=== PATIENT | female | born 1960 | race Caucasian/White ===

== ENCOUNTER → 2024-11-22 | Outpatient (CLI) | payer MEDICARE, MEDICAID, SELFPAY ==
--- NOTE | 2024-11-22 12:20 | XR_ITS ---
Examination: Bone densitometry Date and time of exam:November 22, 2024 1317 hours INDICATIONS: Menopause age 41 left hip replacement 1994 postmenopausal shoulder fracture March 2024 Technique: Lumbar spine and hip total bone mineralization values of an calculated. Peak reference and age match control results have been displayed. Findings: Lumbar spine total bone mineralization is1.190 gm/cm2. This is 1.3 standard deviations above peak reference. This is 3.2 standard deviations above age-matched controls. Hip total bone mineralization is 0.646 gm/cm2 This is 2.4 standard deviations below peak reference. This is 1.1 standard deviations above age-matched controls Impression: There is normal mineralization based on lumbar spine measurements. There is osteoporosis based on hip measurements
== END | disposition home or self-care (01) ==
LOC: CDIM 12:19
PROVIDERS: PCP Registered Nurse; Referring Provider Registered Nurse; Visit Provider Registered Nurse
DX: Z13.820 Encounter for screening for osteoporosis (principal); M81.0 Age-related osteoporosis without current pathological fracture
CPT/HCPCS: 77080

== ENCOUNTER → 2025-04-02 | Outpatient (CLI) | payer MEDICARE, MEDICAID, SELFPAY ==
--- NOTE | 2025-04-02 09:45 | XR_ITS ---
Examination: Pelvic ultrasound, transabdominal, complete Technique: Transabdominal ultrasound of the pelvis performed using grayscale imaging Date and time of exam: April 02, 2025, 10:21 a.m. INDICATIONS: Abdominal pelvic pain years FINDINGS: Extensive bowel gas severely limits the study No diagnostic visualization uterus or ovaries IMPRESSION: Severely limited study secondary to bowel gas Recommend transvaginal pelvic sonography follow-up
--- NOTE | 2025-04-02 09:45 | XR_ITS ---
Examination: Abdomen sonogram, complete Date and time of exam: April 02, 2025, 10:23 a.m. INDICATIONS: Abdominal pain this week. Technique: Multiple real-time grayscale transabdominal sonographic images of the abdomen have been obtained. Findings: Normal gallbladder Normal common bile duct 0.3 cm Pancreatic head 2.2 cm Aorta not enlarged Liver 14.5 cm no focal liver lesions Normal hepatopetal portal venous flow Patent IVC Right kidney 8.9 cm cortex 1.3 cm Left kidney 11.1 cm renal cortex 1.5 cm Mild renal scar formation, no hydronephrosis Spleen 9.0 cm IMPRESSION: Normal gallbladder Normal common bile duct Liver normal size no focal liver lesions
== END | disposition home or self-care (01) ==
LOC: CDIM 10:05
PROVIDERS: PCP Registered Nurse; Referring Provider Registered Nurse; Visit Provider Registered Nurse
DX: R10.9 Unspecified abdominal pain (principal)
CPT/HCPCS: 76700; 76856